=== PATIENT | male | born 1950 | race Caucasian/White ===

== ENCOUNTER → 2016-05-19 | Outpatient (CLI) | payer MEDICARE, BC | LOC: MW.CHFP 08:00 | PROVIDERS: ATTEND Student in an Organized Health Care Education/Training Program | DX: Z51.81 Encounter for therapeutic drug level monitoring (principal); Z79.01 Long term (current) use of anticoagulants; I26.99 Other pulmonary embolism without acute cor pulmonale | CPT/HCPCS: 85610; 99211 ==

== ENCOUNTER → 2016-06-23 | Outpatient (CLI) | payer MEDICARE, BC | LOC: MW.CHFP 08:00 | PROVIDERS: ATTEND Student in an Organized Health Care Education/Training Program | DX: Z51.81 Encounter for therapeutic drug level monitoring (principal); Z79.01 Long term (current) use of anticoagulants; I26.99 Other pulmonary embolism without acute cor pulmonale | CPT/HCPCS: 85610; 99211 ==

== ENCOUNTER 2018-05-26 08:09 | Emergency (ER) | payer MEDICARE, BC ==
[2018-05-26] MEDS ORDERED: Albuterol/Ipratropium 3.0-0.5 MG/3 ML Neb Soln NEB ONE (08:28)
--- NOTE | 2018-05-26 08:29 | EDM.PDOC ---
ED HPI GENERAL MEDICAL PROBLEM - General Chief Complaint: Respiratory Problem Stated Complaint: COUGH/CONGESTION/VOMITING Time Seen by Provider: 05/26/18 08:29 Source of Information: Reports: Patient - History of Present Illness INITIAL COMMENTS - FREE TEXT/NARRATIVE: HISTORY AND PHYSICAL: History of present illness: [Patient presents with persistent cough and general malaise over the last week no fever chills or sweats he has had an episode of vomiting no chest pain shortness breath headache dizziness palpitation no bowel or urine symptoms ] Review of systems: As per history of present illness and below otherwise all systems reviewed and negative. Past medical history: As per history of present illness and as reviewed below otherwise noncontributory. Surgical history: As per history of present illness and as reviewed below otherwise noncontributory. Social history: No reported history of drug or alcohol abuse. Family history: As per history of present illness and as reviewed below otherwise noncontributory. Physical exam: HEENT: Atraumatic, normocephalic, pupils reactive, negative for conjunctival pallor or scleral icterus, mucous membranes moist, throat clear, neck supple, nontender, trachea midline. Lungs: Clear to auscultation, breath sounds equal bilaterally, chest nontender. Heart: S1S2, regular, negative for clicks, rubs, or JVD. Abdomen: Soft, nondistended, nontender. Negative for masses or hepatosplenomegaly. Negative for costovertebral tenderness. Pelvis: Stable nontender. Genitourinary: Deferred. Rectal: Deferred. Extremities: Atraumatic, negative for cords or calf pain. Neurovascular unremarkable. Neuro: Awake, alert, oriented. Cranial nerves II through XII unremarkable. Cerebellum unremarkable. Motor and sensory unremarkable throughout. Exam nonfocal. Diagnostics: [CBC CMP UA Chest 1 view ] Therapeutics: [ Levaquin HFA patient offered admission and he refused at this time advised return if symptoms persist or worsen ] Impression: [ right pneumonia] Definitive disposition and diagnosis as appropriate pending reevaluation and review of above. headahce Pain Score (Numeric/FACES): 6 neck Pain Score (Numeric/FACES): 6 - Related Data Allergies Allergy/AdvReac Type Severity Reaction Status Date / Time No Known Allergies Allergy Verified 05/26/18 08:20 Home Meds: Home Meds Bimatoprost [Lumigan 0.01% Ophth Soln] 1 drop EYEBOTH BID 07/28/14 [History] Pregabalin [Lyrica] 75 mg PO BEDTIME 07/28/14 [History] Simvastatin [Zocor] 20 mg PO BEDTIME 07/28/14 [History] Sodium Chloride [Saline Nasal [place]] 1 spray INH Q2HR PRN 04/06/15 [History] ALPRAZolam [Alprazolam] 0.5 mg PO Q12H PRN #10 tablet 04/07/15 [Rx] Metoprolol Succinate [Toprol XL] 50 mg PO DAILY #14 tab.er 04/07/15 [Rx] Warfarin [Coumadin] 5 mg PO DAILY #10 tablet 04/07/15 [Rx] Citalopram [Celexa] 0.5 tab PO DAILY 04/10/15 [History] Nabumetone 1,000 mg PO DAILY 04/10/15 [History] Past Medical History HEENT History: Reports: Glaucoma Cardiovascular History: Reports: High Cholesterol Respiratory History: Reports: PE Gastrointestinal History: Reports: None Genitourinary History: Reports: None Musculoskeletal History: Reports: Other (See Below) Other Musculoskeletal History: Sciatica Neurological History: Reports: None Psychiatric History: Reports: None Endocrine/Metabolic History: Reports: None Hematologic History: Reports: None Immunologic History: Reports: None Oncologic (Cancer) History: Reports: None Dermatologic History: Reports: None - Infectious Disease History Infectious Disease History: Reports: None - Past Surgical History Head Surgeries/Procedures: Reports: None HEENT Surgical History: Reports: None Cardiovascular Surgical History: Reports: Cardiac Ablation Respiratory Surgical History: Reports: None GI Surgical History: Reports: None Male Surgical History: Reports: None Endocrine Surgical History: Reports: None Neurological Surgical History: Reports: None Musculoskeletal Surgical History: Reports: None Oncologic Surgical History: Reports: None Dermatological Surgical History: Reports: None Social & Family History - Family History Family Medical History: Noncontributory HEENT: Reports: None - Tobacco Use Smoking Status *Q: Never Smoker Second Hand Smoke Exposure: No - Caffeine Use Caffeine Use: Reports: Coffee - Recreational Drug Use Recreational Drug Use: No ED ROS GENERAL - Review of Systems Review Of Systems: See Below ED EXAM, GENERAL - Physical Exam Exam: See Below Course - Vital Signs Last Recorded V/S: Last Vital Signs Temp 98.0 F 05/26/18 08:18 Pulse 104 H 05/26/18 08:18 Resp 18 05/26/18 08:18 BP 139/77 05/26/18 08:18 Pulse Ox 92 L 05/26/18 08:18 - Orders/Labs/Meds Orders: Active Orders 24 hr Category Date Time Status EKG Documentation Completion [RC] STAT Care 05/26/18 08:41 Active RT Aerosol Therapy [RC] ASDIRECTED Care 05/26/18 08:28 Active UA RFX WARD AND CULT IF INDIC [URIN] Stat Lab 05/26/18 08:31 Ordered Labs: Laboratory Tests 05/26/18 05/26/18 05/26/18 Range/Units 08:35 08:35 08:35 WBC 13.56 H (4.0-11.0) K/uL RBC 4.25 L (4.50-5.90) M/uL Hgb 14.8 (13.0-17.0) g/dL Hct 42.2 (38.0-50.0) % MCV 99.3 H (80.0-98.0) fL MCH 34.8 H (27.0-32.0) pg MCHC 35.1 (31.0-37.0) g/dL RDW Std Deviation 47.1 (28.0-62.0) fl RDW Coeff of Anastasia 13 (11.0-15.0) % Plt Count 260 (150-400) K/uL MPV 9.70 (7.40-12.00) fL Neut % (Auto) 81.9 H (48.0-80.0) % Lymph % (Auto) 8.0 L (16.0-40.0) % [place] % (Auto) 8.8 (0.0-15.0) % Eos % (Auto) 1.2 (0.0-7.0) % Baso % (Auto) 0.1 (0.0-1.5) % Neut # (Auto) 11.1 H (1.4-5.7) K/uL Lymph # (Auto) 1.1 (0.6-2.4) K/uL [place] # (Auto) 1.2 H (0.0-0.8) K/uL Eos # (Auto) 0.2 (0.0-0.7) K/uL Baso # (Auto) 0.0 (0.0-0.1) K/uL Nucleated RBC % 0.0 /100WBC Nucleated RBCs # 0 K/uL Sodium 138 (136-148) mmol/L Potassium 4.0 (3.5-5.1) mmol/L Chloride 103 (98-107) mmol/L Carbon Dioxide 22.5 (21.0-32.0) mmol/L BUN 11 (7.0-18.0) mg/dL Creatinine 1.0 (0.8-1.3) mg/dL Est Cr Clr Drug Dosing 73.21 mL/min Estimated GFR (MDRD) > 60.0 ml/min Glucose 139 H (74-106) mg/dL Calcium 8.7 (8.5-10.1) mg/dL Total Bilirubin 0.5 (0.2-1.0) mg/dL AST 26 (15-37) IU/L ALT 27 (14-63) IU/L Alkaline Phosphatase 66 (46-116) U/L Troponin I < 0.050 (0.000-0.056) ng/mL B-Natriuretic Peptide 49 (<100) PG/ML Total Protein 7.3 (6.4-8.2) g/dL Albumin 3.3 L (3.4-5.0) g/dL Globulin 4.0 (2.6-4.0) g/dL Albumin/Globulin Ratio 0.8 L (0.9-1.6) Meds: Medications Discontinued Medications Generic Name Dose Route Start Last Admin Trade Name Freq PRN Reason Stop Dose Admin Albuterol/Ipratropium 3 ml 05/26/18 08:28 05/26/18 08:52 Duoneb 3.0-0.5 Mg/3 Ml NEB 05/26/18 08:29 3 ml ONETIME ONE Administration Departure - Departure Time of Disposition: 10:08 Disposition: Home, Self-Care 01 Condition: Good Clinical Impression: Pneumonia - Discharge Information Referrals: Sanchez Watts MD [Primary Care Provider] - Forms: ED Department Discharge Additional Instructions: Medication as prescribed Return if symptoms persist or worsen Follow-up with primary care 7-14 days for repeat chest x-ray [facility] [address] [place] [id number] The following information is given to patients seen in the emergency department who are being discharged to home. This information is to outline your options for follow-up care. We provide all patients seen in our emergency department with a follow-up referral. The need for follow-up, as well as the timing and circumstances, are variable depending upon the specifics of your emergency department visit. If you don't have a primary care physician on staff, we will provide you with a referral. We always advise you to contact your personal physician following an emergency department visit to inform them of the circumstance of the visit and for follow-up with them and/or the need for any referrals to a consulting specialist. The emergency department will also refer you to a specialist when appropriate. This referral assures that you have the opportunity for follow-up care with a specialist. All of these measure are taken in an effort to provide you with optimal care, which includes your follow-up. Under all circumstances we always encourage you to contact your private physician who remains a resource for coordinating your care. When calling for follow-up care, please make the office aware that this follow-up is from your recent emergency room visit. If for any reason you are refused follow-up, please contact the [facility] emergency department at and asked to speak to the emergency department charge nurse. - My Orders Last 24 Hours: My Active Orders 05/26/18 08:28 RT Aerosol Therapy [RC] ASDIRECTED 05/26/18 08:31 UA RFX WARD AND CULT IF INDIC [URIN] Stat 05/26/18 08:41 EKG Documentation Completion [RC] STAT - Assessment/Plan Last 24 Hours: My Active Orders 05/26/18 08:28 RT Aerosol Therapy [RC] ASDIRECTED 05/26/18 08:31 UA RFX WARD AND CULT IF INDIC [URIN] Stat 05/26/18 08:41 EKG Documentation Completion [RC] STAT
[2018-05-26 09:24] LABS: CHLORIDE,CL 103 mmol/L (98-107); SODIUM,NA 138 mmol/L (136-148)
--- NOTE | 2018-05-26 09:49 | CR ---
INDICATION: Chest pain and shortness of breath TECHNIQUE: Chest 1 view COMPARISON: None FINDINGS: Cardiovascular and mediastinum: Heart size and vasculature are normal in caliber and appearance. Lungs and pleural spaces: Focal opacity is present in the right infrahilar region. Remainder of the lungs and pleural spaces are clear. Bones and soft tissues: No significant findings. IMPRESSION: Nonspecific right infrahilar opacity could represent normal vascular crowding. However, pneumonia, atelectasis or mass could also have this appearance. Short-term follow-up PA and lateral chest x-ray is recommended for further assessment. Dictated by Murali Donaldson MD @ May 26 2018 9:45AM Signed by Dr. Murali Donaldson @ May 26 2018 9:47AM
[2018-05-26] MEDS ORDERED: Acetaminophen 500 MG Tab PO ONE (10:18)
[2018-05-26 14:06] VITALS: BP 104/64
== END 2018-05-26 10:25 | disposition home or self-care (01) ==
LOC: MW.ED 08:09
DX: J18.9 Pneumonia, unspecified organism (principal)
CPT/HCPCS: 36415; 71045; 80053; 83880; 84484; 85025; 87804; 93005; 94640; 99284; A9270; 99283; J7620-GY

== ENCOUNTER 2019-11-03 17:51 | Emergency (ER) | payer MEDICARE, BC ==
--- NOTE | 2019-11-03 18:17 | EDM.PDOC ---
ED HPI GENERAL MEDICAL PROBLEM - General Chief Complaint: ENT Problem Stated Complaint: LEFT EAR Time Seen by Provider: 11/03/19 18:01 Source of Information: Reports: Patient History Limitations: Reports: No Limitations - History of Present Illness INITIAL COMMENTS - FREE TEXT/NARRATIVE: HISTORY AND PHYSICAL: History of present illness: Patient is a 69-year-old male who presents to the emergency room with complaints of a foreign body in the left ear canal. He was taking his hearing aid out when the rubber backing of the device was left in the ear canal. He was unable to get this out by himself. He offers no other systemic complaints. Review of systems: As per history of present illness and below otherwise all systems reviewed and negative. Past medical history: As per history of present illness and as reviewed below otherwise noncontributory. Surgical history: As per history of present illness and as reviewed below otherwise noncontributory. Social history: See social history for further information Family history: As per history of present illness and as reviewed below otherwise noncontributory. Physical exam: General: Well developed and well nourished 69-year-old male. Alert and orientated x 3. Nontoxic in appearance and in no acute distress. Vital signs are stable and have been reviewed by me. Nursing notes were reviewed. HEENT: Atraumatic, normocephalic, pupils equal and reactive bilaterally, negative for conjunctival pallor or scleral icterus, mucous membranes moist, TMs normal on right, foreign body obstructing the ear canal in left. Throat clear, neck supple, nontender, trachea midline. No drooling or trismus noted. No meningeal signs. No hot potato voice noted. Lungs: Clear to auscultation, breath sounds equal bilaterally. Skin: Intact, warm, dry. No lesions or rashes noted. Hematologic: No petechiae or purpra. Mucosa appropriate color and normal nail bed color and refill. Extremities: Atraumatic, moves all extremities per self without difficulty or deficits, negative for cords or calf pain. Neurovascular unremarkable. Neuro: Awake, alert, oriented. Cranial nerves II through XII unremarkable. Cerebellum unremarkable. Motor and sensory unremarkable throughout. Exam nonfocal. Notes: An alligator clamp was used to gently grasp the rubber backing of the hearing aid and removed. Patient tolerated well. Left TM is normal with good light reflex. We discussed signs and symptoms that would prompt them to return to the Emergency Department. Medication, follow up and supportive care measures were reviewed and discussed. Voices understanding and is agreeable to plan of care. Denies any further questions or concerns at this time. Diagnostics: None Therapeutics: None Prescription: None Impression: Foreign body left ear Plan: 1. Avoid putting anything in the ear canal that can cause injury. 2. Follow-up with firearms specialist as needed. Return to the ED as needed and as discussed. Definitive disposition and diagnosis as appropriate pending reevaluation and review of above. - Related Data Allergies Allergy/AdvReac Type Severity Reaction Status Date / Time No Known Allergies Allergy Verified 11/03/19 18:12 Home Meds: Home Meds Bimatoprost [Lumigan 0.01% Ophth Soln] 1 drop EYEBOTH BID 07/28/14 [History] Pregabalin [Lyrica] 75 mg PO BEDTIME 07/28/14 [History] Simvastatin [Zocor] 20 mg PO BEDTIME 07/28/14 [History] Sodium Chloride [Saline Nasal [place]] 1 spray INH Q2HR PRN 04/06/15 [History] ALPRAZolam [Alprazolam] 0.5 mg PO Q12H PRN #10 tablet 04/07/15 [Rx] Metoprolol Succinate [Toprol XL] 50 mg PO DAILY #14 tab.er 04/07/15 [Rx] Warfarin [Coumadin] 5 mg PO DAILY #10 tablet 04/07/15 [Rx] Citalopram [Celexa] 0.5 tab PO DAILY 04/10/15 [History] Nabumetone 1,000 mg PO DAILY 04/10/15 [History] Past Medical History HEENT History: Reports: Glaucoma Cardiovascular History: Reports: High Cholesterol Respiratory History: Reports: PE Gastrointestinal History: Reports: None Genitourinary History: Reports: None Musculoskeletal History: Reports: Other (See Below) Other Musculoskeletal History: Sciatica Neurological History: Reports: None Psychiatric History: Reports: None Endocrine/Metabolic History: Reports: None Hematologic History: Reports: None Immunologic History: Reports: None Oncologic (Cancer) History: Reports: None Dermatologic History: Reports: None - Infectious Disease History Infectious Disease History: Reports: None - Past Surgical History Head Surgeries/Procedures: Reports: None HEENT Surgical History: Reports: None Cardiovascular Surgical History: Reports: Cardiac Ablation Respiratory Surgical History: Reports: None GI Surgical History: Reports: None Male Surgical History: Reports: None Endocrine Surgical History: Reports: None Neurological Surgical History: Reports: None Musculoskeletal Surgical History: Reports: None Oncologic Surgical History: Reports: None Dermatological Surgical History: Reports: None Social & Family History - Family History Family Medical History: Noncontributory HEENT: Reports: None - Tobacco Use Smoking Status *Q: Unknown Ever Smoked - Caffeine Use Caffeine Use: Reports: Coffee - Recreational Drug Use Recreational Drug Use: No ED ROS ENT - Review of Systems Review Of Systems: Comprehensive ROS is negative, except as noted in HPI. ED EXAM, ENT - Physical Exam Exam: See Below (See dictation) ED ENT PROCEDURES - Foreign Body Removal Indication:: Rubber peice in Left ear Consent Obtained: Patient Performing Doctor:: Humble Skinner Foreign Body Other Location Comment:: Left ear Anesthesia Type: None Complications: No Course - Vital Signs Last Recorded V/S: Last Vital Signs Temp 97.0 F 11/03/19 18:13 Pulse 69 11/03/19 18:13 Resp 16 11/03/19 18:13 BP 153/80 H 11/03/19 18:13 Pulse Ox 97 11/03/19 18:13 Departure - Departure Time of Disposition: 18:21 Disposition: Home, Self-Care 01 Clinical Impression: Ear foreign body Qualifiers: Encounter type: initial encounter Laterality: left Qualified Code(s): T16.2XXA - Foreign body in left ear, initial encounter - Discharge Information Instructions: Ear Foreign Body, [id number] Referrals: Sanchez Watts MD [Primary Care Provider] - Forms: ED Department Discharge Additional Instructions: The following information is given to patients seen in the emergency department who are being discharged to home. This information is to outline your options for follow-up care. We provide all patients seen in our emergency department with a follow-up referral. The need for follow-up, as well as the timing and circumstances, are variable depending upon the specifics of your emergency department visit. If you don't have a primary care physician on staff, we will provide you with a referral. We always advise you to contact your personal physician following an emergency department visit to inform them of the circumstance of the visit and for follow-up with them and/or the need for any referrals to a consulting specialist. The emergency department will also refer you to a specialist when appropriate. This referral assures that you have the opportunity for follow-up care with a specialist. All of these measure are taken in an effort to provide you with optimal care, which includes your follow-up. Under all circumstances we always encourage you to contact your private physician who remains a resource for coordinating your care. When calling for follow-up care, please make the office aware that this follow-up is from your recent emergency room visit. If for any reason you are refused follow-up, please contact the [facility] Emergency Department at and asked to speak to the emergency department charge nurse. [facility] [address] [place] [id number] [facility] [address] [place] [id number] Thank you for choosing the [facility] emergency department in [place] for your medical needs today. It was a pleasure caring for you. Today you were seen in the emergency department for ear foreign body 1. Avoid putting anything in the ear canal that can cause injury. 2. Follow-up with firearms specialist as needed. Return to the ED as needed and as discussed. Sepsis Event Note (ED) - Evaluation Sepsis Screening Result: No Definite Risk - Focused Exam Vital Signs: Vital Signs Temp Pulse Resp BP Pulse Ox 11/03/19 18:13 97.0 F 69 16 153/80 H 97
[2019-11-03 18:38] VITALS: BP 118/68; PULSE 67
== END 2019-11-03 18:35 | disposition home or self-care (01) ==
LOC: MW.ED 17:51
DX: T16.2XXA Foreign body in left ear, initial encounter (principal); E78.00 Pure hypercholesterolemia, unspecified; Z86.718 Personal history of other venous thrombosis and embolism; Z79.899 Other long term (current) drug therapy; Z79.01 Long term (current) use of anticoagulants
CPT/HCPCS: 69200; 99282; 99282-25

== ENCOUNTER 2022-03-27 13:48 | Emergency (ER) | payer MEDICARE, BC ==
[2022-03-27 14:19] VITALS: BP 168/90; PULSE 106
== END 2022-03-27 14:35 | disposition home or self-care (01) ==
LOC: MW.ED 13:48
DX: M54.31 Sciatica, right side (principal); E78.00 Pure hypercholesterolemia, unspecified; I26.99 Other pulmonary embolism without acute cor pulmonale; Z79.899 Other long term (current) drug therapy; Z79.01 Long term (current) use of anticoagulants
CPT/HCPCS: 99283

== ENCOUNTER 2022-06-03 17:25 | Emergency (ER) | payer MEDICARE, BC ==
[2022-06-03] MEDS ORDERED: Sodium Chloride 0.9% 2.5 ML Syringe FLUSH PRN (18:16)
[2022-06-03] MEDS ORDERED: Sodium Chloride 0.9% 10 ML Syringe FLUSH PRN (18:16)
[2022-06-03] MEDS ORDERED: Sodium Chloride 0.9% 1,000 ML IV STA (18:17)
[2022-06-03] MEDS ORDERED: Ondansetron 4 MG/2 ML SDV IVPUSH STA (18:17)
[2022-06-03 18:28] LABS: CARBON DIOXIDE,CO2 21.2 mmol/L (21.0-32.0); POTASSIUM,K 3.3 mmol/L (3.5-5.1)
[2022-06-03] MEDS ORDERED: Iopamidol 755 MG/ML 500 ML Multipack Bottle IVPUSH ONE (18:44)
[2022-06-03 19:18] LABS: CORONAVIRUS COVID-19 NAA NEGATIVE (NEGATIVE); INFLUENZA A NAA NEGATIVE (NEGATIVE); INFLUENZA B NAA NEGATIVE (NEGATIVE)
[2022-06-03] MEDS ORDERED: Promethazine 25 MG/ML SDV IM STA (19:28)
[2022-06-03] MEDS ORDERED: Pantoprazole 40 MG in Sodium Chloride 0.9% 10 ML IVPUSH STA (20:04)
[2022-06-03 21:03] VITALS: BP 138/93; PULSE 89
== END 2022-06-03 21:02 | disposition home or self-care (01) ==
LOC: MW.ED 17:25
DX: M54.41 Lumbago with sciatica, right side (principal); K29.50 Unspecified chronic gastritis without bleeding; R11.2 Nausea with vomiting, unspecified; I10 Essential (primary) hypertension; E78.5 Hyperlipidemia, unspecified; K21.9 Gastro-esophageal reflux disease without esophagitis; I48.91 Unspecified atrial fibrillation; Z86.16 Personal history of COVID-19; Z79.01 Long term (current) use of anticoagulants; Z79.899 Other long term (current) drug therapy; Z20.822 Contact with and (suspected) exposure to COVID-19
CPT/HCPCS: 0240U; 36415; 74177; 80053; 81003; 83690; 85025; 96361; 96372; 96374; 96375; 99284; C9113; J2405; J2550; J3490; J7030; Q9967